=== PATIENT | male | born 1995 | race Caucasian/White ===

== ENCOUNTER 2016-06-21 04:08 | Emergency (ER) | payer OTHER ==
[~2016-06-21] VITALS: Ht 170.2 cm; Wt 52.3 kg
[2016-06-21 04:09] VITALS: TEMP 36.5; Ht 170.2 cm; Wt 52.3 kg
[2016-06-21 04:14] VITALS: O2SAT 99
--- NOTE | 2016-06-21 04:25 | EMERGENCY ROOM VISIT NOTE ---
History Report prepared by Fany: Antonina De Santiago Under the Supervision of: Dr. Ana María Torres D.O. First contact with patient: 04:12 Chief Complaint: ALCOHOL OVERDOSE Stated Complaint: ALCOHOL OVERDOSE Nursing Triage Summary: Patient arrived to ED via BLS, patient reports drinking 6-7 drinks. Patient was found when he walked into the wrong apartment. History of Present Illness The patient is a 21 year old male who presents to the Emergency Room with complaints of an alcohol overdose that occurred prior to arrival. Per nursing staff the patient was found walking into the wrong apartment. The patient states that he drank beer tonight. He is unsure if he fell. The patient denies any drug use. 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 The history is limited secondary to intoxication. Source of History: patient, nursing staff History Limited By: intoxication Onset: prior to arrival Position: other (global) Quality: other (alcohol overdose) Review of Systems The history is limited secondary to alcohol intoxication. Past Medical & Surgical Unobtainable secondary to alcohol intoxication. Family History Unobtainable secondary to alcohol intoxication. Social History Smoking Status: Light Tobacco Smoker Alcohol Use: heavy Occupation Status: [employer] student Current/Historical Medications No Active Prescriptions or Reported Meds Allergies Coded Allergies: No Known Allergies (Unverified , 06/21/16) Physical Exam Vital Signs Date Time Temp Pulse Resp B/P Pulse Ox O2 Delivery O2 Flow Rate FiO2 06/21/16 06:08 95 20 140/106 95 Room Air 06/21/16 04:42 115 20 127/102 99 Room Air 06/21/16 04:15 110 06/21/16 04:14 99 Room Air 06/21/16 04:09 36.5 118 20 153/108 99 Room Air Physical Exam HEENT: Head - normocephalic and atraumatic Pupils are 4 mm and sluggishly reactive to light. Droopy eyelids Nose - moist nasal mucosa without discharge. Mouth - moist buccal mucosa. Oropharynx is nonerythematous and there is no tonsillar exudate or edema noted. Neck: Supple; no JVD, nuchal rigidity, cervical lymphadenopathy. Heart: Regular rate and rhythm. There is a normal S1 and S2 with no murmurs, clicks, or gallops appreciated. Lungs: Clear to auscultation bilaterally with no wheezes, rales, or rhonchi. Abdomen: Soft, completely nontender, nondistended, with good bowel sounds. There are no palpable pulsatile masses or hepatosplenomegaly. There is no guarding, rigidity, or rebound noted. Extremities: No evidence of cyanosis, clubbing, or edema. There are easily palpable peripheral pulses. Skin: warm and dry with good turgor and no rashes. Medical Decision & Procedures Laboratory Results 06/21/16 04:15 Test 06/21/16 04:15 Anion Gap 10.0 mmol/L (3-11) Est Creatinine Clear Calc Drug Dose 119.0 ml/min Estimated GFR () > 150.0 Estimated GFR (Non- 132.4 BUN/Creatinine Ratio 10.6 (10-20) Calcium Level 9.0 mg/dl (8.5-10.1) Ethyl Alcohol mg/dL 260.0 mg/dl (0-3) Laboratory results per my review. ED Course 0417: Past medical records reviewed. The patient was evaluated in room B3B. A complete history and physical exam was performed. Labs are drawn as above. The patient was observing the bellstaff and pulse oximeter. 0547: I reevaluated the patient and he is wide awake. He is going to try to call a sober friend to come get him. 0609: I reevaluated the patient and he states that he has a ride coming. 0614: Per nursing staff, the patient has a ride coming within the next hour. Medical Decision The patient is a 21 year old male who presents to the ED with alcohol overdose. Differential diagnosis includes alcohol overdose, drug intoxication, hypoglycemia, head injury. Lab interpretation: alcohol 260, normal renal function and glucose The patient presents to the emergency department after consuming too much alcohol and trying to enter the wrong apartment. He had no outward signs of trauma. When he was more sober, he had no complaints of pain. He was encouraged to avoid such excessive alcohol use in the future. The patient does have a sober friend coming to get him. Impression Primary Impression: Alcohol overdose Scribe Attestation The scribe's documentation has been prepared under my direction and personally reviewed by me in its entirety. I confirm that the note above accurately reflects all work, treatment, procedures, and medical decision making performed by me. Departure Information Dispostion Home / Self-Care Prescriptions No Active Prescriptions or Reported Meds Forms HOME CARE DOCUMENTATION FORM, IMPORTANT VISIT INFORMATION Patient Instructions ED Overdose Alcohol, [facility]: [employer] Students and Alcohol Related Visits, [facility] Additional Instructions Avoid such excessive alcohol use in the future. Rest. Keep yourself well-hydrated. Use tylenol for headaches
[2016-06-21 05:06] LABS: BLOOD UREA NITROGEN 8 mg/dl (7-18); BUN/CREATININE RATIO 10.6 (10-20); CARBON DIOXIDE 28 mmol/L (21-32); CHLORIDE 106 mmol/L (98-107); CREATININE 0.72 mg/dl (0.60-1.40); GLUCOSE 97 mg/dl (70-99); SODIUM 144 mmol/L (136-145)
[2016-06-21 06:37] VITALS: BP 129/82; PULSE 108; O2SAT 98
== END 2016-06-21 06:39 | disposition home or self-care (01) ==
LOC: EDBD 04:08 → C.EDB 04:11
DX: T51.91XA Toxic effect of unspecified alcohol, accidental (unintentional), initial encounter (principal); F17.200 Nicotine dependence, unspecified, uncomplicated